=== PATIENT | male | born 1990 | race Caucasian/White ===

== ENCOUNTER 2016-02-28 22:36 | Emergency (ER) | payer SELFPAY ==
[~2016-02-28] VITALS: Ht 185.4 cm; Wt 143.1 kg
[~2016-02-28 22:36] MED LIST: SULF-154 PO; TYLE3 PO; Z.0.NO CURRENT MEDS
[2016-02-28 22:40] VITALS: BP 147/92; PULSE 78; RESP 18; TEMP 99.4; O2SAT 98
[2016-02-28] MEDS ORDERED: CIPR-9 PO (23:52)
[2016-02-28] MEDS ORDERED: BACT800T5 PO (23:52)
--- NOTE | 2016-02-28 23:52 | PD ---
HPI Chief Complaint: Skin Problem Time Seen by Provider: 23:06 Travel History International Travel<30 days: No Contact w/Intl Traveler<30days: No Traveled to known affect area: No History of Present Illness HPI Patient is a 25-year-old male who comes in complaining of pain and swelling to his left first toe. He says he has had an ingrown toenail for the past month. He has tried to cut the toenail out. The past week he has noticed increased pain and swelling to the area. He has not had any fever or chills. He denies any pain or other issues to the rest of the foot. PFSH Past Medical History Asthma: Yes Diminished Hearing: No Respiratory: Yes (ASTHMA) Influenza Vaccination: No Past Surgical History Abdominal Surgery: Yes (age 4.) Other Surgery: Yes (HYDROCELE HERNIA) Social History Alcohol Use: No Tobacco Use: No Substance Use: No Allergies-Medications (Allergen,Severity, Reaction): Coded Allergies: Penicillin (Verified Allergy, Severe, STOPS BREATHING, 02/28/16) Reported Meds & Prescriptions Reported Meds & Active Scripts Active Bactrim DS (Sulfamethoxazole-Trimethoprim) 800-160 Mg Tab 1 Tab PO BID Cipro (Ciprofloxacin HCl) 500 Mg Tab 500 Mg PO BID 7 Days Review of Systems General / Constitutional: No: Fever, Chills HENT: No: Headaches Cardiovascular: No: Chest Pain or Discomfort Respiratory: No: Shortness of Breath Gastrointestinal: No: Nausea, Vomiting Musculoskeletal: Positive: Pain Skin: Positive Lesions Neurologic: No: Weakness, Dizziness Physical Exam Narrative GENERAL: Awake and alert in no acute distress. SKIN: Pulse present with erythema to the right of the nail on the first toe. No area of fluctuance. Nail does not appear ingrown. HEAD: Atraumatic. Normocephalic. EYES: Pupils equal and round. No scleral icterus. No injection or drainage. ENT: No nasal bleeding or discharge. Mucous membranes pink and moist. NECK: Trachea midline. No JVD. CARDIOVASCULAR: Regular rate and rhythm. No murmur appreciated. RESPIRATORY: No accessory muscle use. Clear to auscultation. Breath sounds equal bilaterally. MUSCULOSKELETAL: No obvious deformities. No clubbing. No cyanosis. No edema. Left foot without edema or erythema. Infection isolated to the toe. Data Data Last Documented VS Vital Signs Date Time Temp Pulse Resp B/P Pulse Ox O2 Delivery O2 Flow Rate FiO2 02/29/16 00:10 80 20 140/79 99 02/28/16 22:40 99.4 MDM Medical Decision Making Medical Screen Exam Complete: Yes Emergency Medical Condition: Yes Differential Diagnosis Abscess versus cellulitis versus paronychia Narrative Course Patient is a 25-year-old male comes in complaining of painful ingrown toenail. Exam shows infection of the left first toe. There is no need for incision or drainage at this time. Patient will be prescribed antibiotics. Advised to take all the antibiotics. Advised to keep the area clean and dry and covered to prevent any rubbing in the area. Advised follow-up with a primary care physician. Advised to return to the ED as needed for any worsening symptoms. Diagnosis Primary Impression: Toe infection Patient Instructions: Cellulitis (ED), General Instructions Additional Instructions: Follow up with a primary doctor or at the [facility]. Return if your symptoms worsen at any time. Specifically look for increased swelling, redness, pain, or fevers. Make sure you take all of your antibiotics. Keep the area clean and dry. Scripts Sulfamethoxazole-Trimethoprim (Bactrim DS)800-160 Mg Tab1 Tab PO BID #14 TAB Ref 0 Prov:Tressa Yoder MD 02/28/16 Ciprofloxacin (Cipro)500 Mg Qes183 Mg PO BID 7 Days Ref 0 Prov:Tressa Yoder MD 02/28/16 Disposition: 01 DISCHARGE HOME Condition: Stable Tressa Yoder MD Feb 28, 2016 23:52
[2016-02-29 00:10] VITALS: BP 140/79
== END 2016-02-29 00:11 | disposition home or self-care (01) ==
LOC: PHED 22:36
DX: L60.0 Ingrowing nail (principal); L08.9 Local infection of the skin and subcutaneous tissue, unspecified
CPT/HCPCS: 99283